=== PATIENT | male | born 1970 | race Caucasian/White ===

== ENCOUNTER 2017-01-06 13:40 | Emergency (ER) | payer OTHER ==
[~2017-01-06] VITALS: Ht 177.8 cm; Wt 112.5 kg
[2017-01-06] MEDS ORDERED: ONDANSETRON 2MG/ML, 2ML IVPush ONE (14:00)
[2017-01-06] MEDS ORDERED: SODIUM CHLORIDE 0.9% 1,000ML IVBOLUS ONE ×2 (14:00→15:00)
[2017-01-06] MEDS ORDERED: METF500T4 PO (14:29)
[2017-01-06] MEDS ORDERED: ONDANSETRON 2MG/ML, 2ML ONE (14:34)
[2017-01-06 14:49] LABS: PH, VENOUS 7.416 pH (7.320-7.420)
[2017-01-06 14:52] LABS: HEMOGLOBIN 16.1 g/dL (13.7-18.0)
[2017-01-06 15:03] LABS: ASPARTATE AMINO TRANSFERASE 28 U/L (15-37); BLOOD UREA NITROGEN 13 mg/dL (7-18)
[2017-01-06 16:04] VITALS: BP 124/77
== END 2017-01-06 16:06 | disposition home or self-care (01) ==
LOC: ED 14:18
DX: E11.65 Type 2 diabetes mellitus with hyperglycemia (principal); H66.001 Acute suppurative otitis media without spontaneous rupture of ear drum, right ear; E86.0 Dehydration; F17.200 Nicotine dependence, unspecified, uncomplicated
CPT/HCPCS: 36415; 71020; 80053; 82010; 82803; 83605; 83690; 83735; 85025; 96361; 96374; 99285; J2405; J7030